=== PATIENT | female | born 1995 | race Caucasian/White ===

== ENCOUNTER → 2017-04-12 | Outpatient (CLI) | payer OTHER ==
--- NOTE | 2017-04-12 14:32 | DIAGNOSTIC IMAGING REPORT ---
LUMBAR SPINE 5 VIEWS HISTORY: Pain BACK PAIN COMPARISON: None. FINDINGS: There is no fracture. No subluxation. Disc spaces are preserved. IMPRESSION: No fracture or subluxation within the lumbar spine. Electronically signed by: Crow Mckenzie M.D. 04/12/2017 2:31 PM Dictated Date/Time: 04/12/2017 2:31 PM
== END | disposition home or self-care (01) ==
LOC: C.RDSM 13:36
PROVIDERS: ATTEND Internal Medicine
DX: M54.9 Dorsalgia, unspecified (principal)

== ENCOUNTER → 2017-05-10 | Outpatient (CLI) | payer OTHER ==
--- NOTE | 2017-05-10 13:49 | DIAGNOSTIC IMAGING REPORT ---
LUMBAR SPINE 5 VIEWS HISTORY: Pain pain COMPARISON: 04/12/2017 FINDINGS: There is no fracture. No subluxation. Disc spaces are preserved. IMPRESSION: No fracture or subluxation within the lumbar spine. No change from the prior study. Electronically signed by: Crow Mckenzie M.D. 05/10/2017 1:48 PM Dictated Date/Time: 05/10/2017 1:47 PM
== END | disposition home or self-care (01) ==
LOC: C.RDSM 05-10 08:00
PROVIDERS: ATTEND Internal Medicine
DX: M54.5 Low back pain (principal)

== ENCOUNTER → 2017-05-10 | Outpatient (CLI) | payer OTHER ==
--- NOTE | 2017-05-10 17:23 | DIAGNOSTIC IMAGING REPORT ---
PELVIS WITHOUT CONTRAST (MRI) CLINICAL HISTORY: Possible sacral stress fracture. Right SI joint pain. COMPARISON STUDY: MRI the right hip dated 12/15/2015 FINDINGS: Imaging was performed in sagittal coronal and axial planes. There is no evidence of SI joint diastases. There is no evidence of symphysis diastases. There are no areas of marrow edema to indicate occult fracture. There is no evidence of pathologic hip joint effusion. There are no findings to indicate avascular necrosis. There is no pathologic adenopathy. There is an annular fissure and tiny central disc protrusion at the L5-S1 level. IMPRESSION: 1. No evidence of occult stress fracture. 2. Annular fissure and tiny central disc protrusion at the L5-S1 level. Electronically signed by: Louis Esteban M.D. 05/10/2017 5:21 PM Dictated Date/Time: 05/10/2017 5:19 PM
== END | disposition home or self-care (01) ==
LOC: C.MRIBC 15:28
PROVIDERS: ATTEND Internal Medicine
DX: M54.5 Low back pain (principal)